=== PATIENT | male | born 1950 | race Caucasian/White ===

== ENCOUNTER → 2016-06-28 | Day surgery (SDC) | payer OTHER ==
[~2016-06-28] VITALS: Ht 182.9 cm; Wt 106.6 kg
[~2016-06-28] MED LIST: ATORVASTATIN CA40 M1 PO; PROVENTIL HFA6.7 GM INH
--- NOTE | 2016-06-28 09:06 | Operative Report ---
Operative/Inv Procedure Report Surgery Date: 06/28/16 Name of Procedure: Open reduction internal fixation left fifth metatarsal Boswell fracture Pre-Operative Diagnosis: [Left fifth metatarsal fracture Post-Operative Diagnosis: Same Estimated Blood Loss: none Surgeon/Logistics Specialist: GERARDO HUDDLESTON MD Anesthesia: laryngeal mask airway IV Fluids: See anesthesia record Implants: [place] 4.0 cannulated screw Specimens: None Tourniquet: 47 minutes Complications: None Condition: Stable Operative Indication: Patient's a 64-year-old male who sustained a fifth metatarsal Boswell fracture the left foot 2-1/2 months ago. He opted for conservative treatment and a cast however the fracture did not heal and still painful. He then decided to undergo operative fixation of the fracture. The risks and benefits of the procedure were discussed with the patient in detail in the office and he wished to proceed. Operative/Procedure Note Note: Once informed consent was obtained and the correct limb was identified the patient was brought to operating room and placed on the table in the supine position. After administration of general endotracheal anesthesia patient's left leg had a thigh tourniquet placed was prepped and draped in usual sterile fashion. The tourniquet was inflated to 300 mmHg. Using C-arm fluoroscopy the nonunion fracture site was identified as well as the base the fifth metatarsal and an incision was made proximal to the base the fifth metatarsal for placement of the guidewire and cannulated screw. Using the AP and lateral planes a C-arm fluoroscopy the guidewire was placed at the base the fifth metatarsal and optimal position and was placed down the intramedullary canal of the fifth metatarsal. The guidewire was placed across the fracture site and was in good position both the AP and lateral planes. The guidewire was then used to measure length of the screw and we decided on a 50 mm partially-threaded 40 cannulated screw. The guidewire was drilled with a 2.7 drill and then the hole was tapped. A 50 mm 4.0 cannulated screw was placed over the guidewire across the fracture site for compression at the fracture site. Excellent fixation was obtained. C- arm fluoroscopy in AP and lateral planes confirmed position of the screw. The wound was irrigated and closed with 3-0 Vicryl interrupted sutures and 3-0 nylon interrupted sutures. The fracture site also which had been opened with an incision distally and cleaned with a curette was then irrigated and demineralized bone matrix putty was placed around the nonunion fracture site to stimulate bone growth and healing. This wound was then closed in layers as well with 3-0 Vicryl interrupted sutures and 3-0 nylon interrupted sutures. Sterile dressing and split was applied and the patient was awakened taken recovery room in stable condition.
--- NOTE | 2016-06-28 09:38 | RADIOLOGY REPORT ---
EXAMINATION: XR FOOT, LEFT CLINICAL INFORMATION: Left foot metatarsal screw COMPARISON: None TECHNIQUE: Intraoperative C-arm fluoroscopic imaging of the left foot was performed. A total of 9 spot fluoroscopy images of the foot are submitted into the electronic picture archive. FINDINGS: Transverse fracture of the proximal metadiaphysis of the fifth metatarsal. Multiple spot fluoroscopy images were obtained during insertion of a cannulated, distally threaded fixation screw. The metatarsal fragments are fixed in anatomic position. 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 FLUOROSCOPY TIME: 1 minute, 27 seconds IMPRESSION: Fluoroscopic imaging assistance provided to the operating room during fixation of the fifth metatarsal fracture.
== END ==
LOC: STS 04:17
DX: S92.352A Displaced fracture of fifth metatarsal bone, left foot, initial encounter for closed fracture (principal); X58.XXXA Exposure to other specified factors, initial encounter; I25.10 Atherosclerotic heart disease of native coronary artery without angina pectoris; I10 Essential (primary) hypertension
CPT/HCPCS: 73620-LT; J0131; J0690; J2250